=== PATIENT | female | born 1970 | race American Indian/Alaskan Native ===

== ENCOUNTER 2016-05-27 09:28 | Emergency (ER) | payer BC, OTHER ==
[2016-05-27] MEDS ORDERED: TORADOL IM ONE (11:47)
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
--- NOTE | 2016-05-27 13:04 | XRay Report ---
Chest 2 views: History: Cough, Findings: Normal cardiomediastinal silhouette the trachea is midline. No consolidation, pneumothorax or pleural effusion. Impression: No acute cardiopulmonary findings.
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
[2016-05-27] MEDS ORDERED: CATAPRES PO ONE (14:10)
[2016-05-27 14:54] VITALS: BP 167/99
[2016-05-27 15:31] LABS: Anion Gap 16 mmol/L; BUN/Creatinine Ratio 17.14; Blood Urea Nitrogen 12 mg/dL (7-17); Calcium 9.2 mg/dL (8.4-10.2); Carbon Dioxide 25 mmol/L (22-30); Chloride 101.6 mmol/L (98-107); Glucose 108 mg/dL (65-100); Hematocrit 34.1 % (30.3-42.9); Hemoglobin 11.2 gm/dl (10.1-14.3); Mean Corpuscular HGB Conc 33 % (30-34); Mean Corpuscular Hemoglobin 27 pg (28-32); Mean Corpuscular Volume 81 fl (79-97); Platelet Count 363 K/mm3 (140-440); Potassium 3.8 mmol/L (3.6-5.0); Red Blood Count 4.19 M/mm3 (3.65-5.03); Sodium 139 mmol/L (137-145); White Blood Count 7.7 K/mm3 (4.5-11.0)
== END 2016-05-27 15:41 | disposition home or self-care (01) ==
LOC: ED 09:28
DX: M54.5 Low back pain (principal); M25.562 Pain in left knee; V49.49XA Driver injured in collision with other motor vehicles in traffic accident, initial encounter; Y92.413 State road as the place of occurrence of the external cause; Y93.89 Activity, other specified; Y99.8 Other external cause status; Z88.2 Allergy status to sulfonamides; Z88.8 Allergy status to other drugs, medicaments and biological substances
CPT/HCPCS: 36415; 71020; 73560; 80048; 85027; 96372; 99284; J1885